=== PATIENT | female | born 1955 | race Caucasian/White ===

== ENCOUNTER 2023-03-29 05:34 | Outpatient (CLI) | payer MEDICARE ==
[~2023-03-29] VITALS: Ht 162.6 cm; Wt 71.3 kg
[2023-03-29] MEDS ORDERED: CHOL50005 PO (13:45)
[2023-03-29] MEDS ORDERED: GLUC1CAP37 PO (13:45)
[2023-03-29] MEDS ORDERED: TUME1CAP PO (13:45)
[2023-03-29] MEDS ORDERED: FLUT1DIS26 IH (13:45)
[2023-03-29] MEDS ORDERED: MULT-1210 PO (13:45)
[2023-03-29] MEDS ORDERED: FLUT15.845 NS (13:45)
[2023-03-29] MEDS ORDERED: ROSU10TA28 PO (13:45)
[2023-03-29] MEDS ORDERED: UBID100C44 PO (13:45)
[2023-03-29] MEDS ORDERED: ZOLP5TAB7 PO (13:45)
[2023-03-29] MEDS ORDERED: RT-ALBUINH INH (13:45)
[2023-03-29] MEDS ORDERED: MELO7.5T46 PO (13:45)
[2023-03-29] MEDS ORDERED: PROP1DRO7 OP (13:45)
[2023-03-29] MEDS ORDERED: [UNRECOGNIZED DRUG - CODE] TP (13:45)
[2023-03-29] MEDS ORDERED: IBUP-2473 PO (13:45)
[2023-03-29] MEDS ORDERED: VIT1CAPS44 PO (13:45)
[2023-03-29] MEDS ORDERED: CALC-308 PO (13:45)
[2023-03-29] MEDS ORDERED: ESCI-2 PO (13:45)
[2023-03-29] MEDS ORDERED: NAPH15DR6 OP (13:45)
== END 2023-03-29 14:31 | disposition home or self-care (01) ==
LOC: PREOP 05:34
PROVIDERS: ATTEND Obstetrics & Gynecology
DX: Z01.818 Encounter for other preprocedural examination (principal)

== ENCOUNTER 2023-04-05 06:17 | Day surgery (SDC) | payer MEDICARE ==
[~2023-04-05] VITALS: Ht 162 cm; Wt 71.3 kg
[2023-04-05] VITALS (12 sets, daily range): BP systolic 121–167; BP diastolic 64–95
[~2023-04-05 06:17] MED LIST: CALC-308 PO; CHOL50005 PO; ESCI-2 PO; FLUT15.845 NS; FLUT1DIS26 IH; GLUC1CAP37 PO; IBUP-2473 PO; MELO7.5T46 PO; MULT-1210 PO; NAPH15DR6 OP; PROP1DRO7 OP; ROSU10TA28 PO; RT-ALBUINH INH; TUME1CAP PO; UBID100C44 PO; VIT1CAPS44 PO; ZOLP5TAB7 PO; [UNRECOGNIZED DRUG - CODE] TP
[2023-04-05] MEDS ORDERED: metroNIDAZOLE 500MG/100ML IVPB 100 ML IV ONE (06:30)
[2023-04-05] MEDS ORDERED: ceFAZolin INJECTION 2,000 MG in NS (IVPB) 50 ML 50 ML IV ONE (06:30)
[2023-04-05] MEDS ORDERED: ESTROGENS, Conjugated VAGINAL CREAM 30 GM ONE (07:00)
[2023-04-05] MEDS ORDERED: BUPIVACAINE 0.25% 30 ML VIAL ONE (07:01)
[2023-04-05] MEDS ORDERED: NS (IVPB) 100 ML 100 ML ONE (07:02)
[2023-04-05] MEDS: LACTATED RINGERS 1,000 ML 1,000 ML IV PRN ×2 (07:04→07:30)
[2023-04-05] MEDS ORDERED: ONDANSETRON INJECTION 4 MG/2 ML (SDV) ONE (07:06)
[2023-04-05] MEDS ORDERED: dexAMETHasone INJ 10 MG/ML 1 ML VIAL ONE (07:06)
[2023-04-05] MEDS ORDERED: fentaNYL INJECTION 100 MCG/2 ML VIAL ONE (07:06)
[2023-04-05] MEDS ORDERED: LIDOCAINE PF 2% 5 ML VIAL ONE (07:06)
[2023-04-05] MEDS ORDERED: ROCURONIUM 50 MG/5 ML VIAL IV ONE (07:06)
[2023-04-05] MEDS ORDERED: MIDAZOLAM INJ 2 MG/2 ML VIAL ONE (07:06)
[2023-04-05] MEDS ORDERED: SEVOFLURANE (ULTANE) 15 ML INHAL SOLN ONE ×3 (07:06→08:54)
[2023-04-05] MEDS ORDERED: proPOfol INJECTION 200 MG/20 ML VIAL IV ONE (07:06)
--- NOTE | 2023-04-05 07:22 | Progress Note-Pre Operative ---
Pre-Operative Progress Note Date of Available H&P: Apr 05, 2023 Date H&P Reviewed: Apr 05, 2023 Time H&P Reviewed: 07:05 History & Physical: H&P Reviewed, Patient Examed, No changes noted Pre-Operative Diagnosis: POP, Cystocele, Rectocele SHANTANU IBARRA DO Apr 05, 2023 07:22
--- NOTE | 2023-04-05 07:25 | Discharge Inst-Women's Service ---
Discharge Inst-Women's Serv Depart Medication/Instructions New, Converted or Re-Newed RX: Transmitted to Pharmacy Problems Reviewed?: Yes Consults/Follow Up Additional Follow Up: Yes Orders/Referrals Dr. Lau/Laury in 7-10 days and in 8 weeks Activity Activity: Activity as Tolerated Driving Instructions: No Driving for 1 Week NO SMOKING: NO SMOKING Nothing Inside Vagina: No Douching, No [place], No Tampons Diet Discharge Diet: No Restrictions Symptoms to Report to : Bleeding Excessive, Pain Increased, Fever Over 101 Degrees F, Vaginal Bleeding Increase, Questions/Concerns For Any Problems or Questions: Contact Your Physician Skin/Wound Care Infection Signs and Symptoms: Increased Redness, Foul Odor of Wound, Increased Drainage, Skin Itchy or Has a Rash, Increased Swelling, Temperature Above 101 F Operative Area Clean and Dry: Keep Incision Clean/Dry Stitches/Terrance/Dermabond: Dermabond, Care of Stitches Bathing Instructions: SHANTANU Koch DO Apr 05, 2023 07:25
[2023-04-05] MEDS ORDERED: SIME80TA16 PO (07:26)
[2023-04-05] MEDS ORDERED: DOCU100C37 PO (07:26)
[2023-04-05] MEDS ORDERED: HYDR-34 PO (07:26)
[2023-04-05] MEDS ORDERED: IBUP-844 PO (07:26)
[2023-04-05] MEDS ORDERED: ZOLPIDEM 5 MG (AMBIEN) TAB PO PRN (07:30)
[2023-04-05] MEDS ORDERED: HYDROcodone/ACETAMINOPHEN 7.5 MG/325 MG TABLET PO PRN (07:30)
[2023-04-05] MEDS ORDERED: ANTACID SUSPENSION 30 ML UDC PO PRN (07:30)
[2023-04-05] MEDS ORDERED: BENZOCAINE LOZENGES 1 EACH MM PRN (07:30)
[2023-04-05] MEDS ORDERED: KETOROLAC INJ 30 MG/ML VIAL IVP PRN (07:30)
[2023-04-05] MEDS ORDERED: DOCUSATE SODIUM 100 MG CAPSULE PO PRN (07:30)
[2023-04-05] MEDS ORDERED: IBUPROFEN 600 MG TABLET PO PRN (07:30)
[2023-04-05] MEDS ORDERED: ONDANSETRON INJECTION 4 MG/2 ML (SDV) IV PRN (07:30)
[2023-04-05] MEDS ORDERED: SIMETHICONE 80 MG CHEWABLE TABLET PO PRN (07:30)
[2023-04-05] MEDS ORDERED: BUPIVACAINE 0.25% 30 ML VIAL INJ ONE (07:52)
[2023-04-05] MEDS ORDERED: ESTROGENS, Conjugated VAGINAL CREAM 30 GM PV ONE (07:54)
[2023-04-05] MEDS ORDERED: NS 100 ML (IVPB) BAG IR ONE (07:55)
[2023-04-05] MEDS ORDERED: VASOPRESSIN INJECTION 20 UNIT/ML VIAL IJ ONE (07:55)
[2023-04-05] MEDS ORDERED: HYDROmorphone INJECTION 2 MG/ML VIAL ONE (07:56)
[2023-04-05] MEDS ORDERED: GLYCOPYRROLATE INJ 0.2 MG/ML 2 ML VIAL ONE (08:51)
[2023-04-05] MEDS ORDERED: NEOSTIGMINE 1 MG/1ML 10 ML VIAL ONE (08:51)
--- NOTE | 2023-04-05 09:16 | Anesthesia-General Post-Op ---
General Patient Condition Mental Status/LOC: Same as Preop Cardiovascular: Satisfactory Nausea/Vomiting: Absent Respiratory: Satisfactory Pain: Controlled Complications: Absent Post Op Complications Complications None Follow Up Care/Instructions Patient Instructions None needed. Anesthesia/Patient Condition Patient Condition Patient is doing well, no complaints, stable vital signs, no apparent adverse anesthesia problems. No complications reported per nursing. MAYRA JAIMES CRNA Apr 05, 2023 09:16
[2023-04-05] MEDS ORDERED: fentaNYL INJECTION 100 MCG/2 ML VIAL IVP ONE (09:30)
[2023-04-05] MEDS ORDERED: ONDANSETRON INJECTION 4 MG/2 ML (SDV) IVP PRN (09:30)
[2023-04-05] MEDS: LACTATED RINGERS 1,000 ML 1,000 ML IV SCH ×2 (10:48→18:35)
--- NOTE | 2023-04-05 16:06 | OPERATIVE REPORT ---
DATE OF SERVICE: 04/05/2023 PREOPERATIVE DIAGNOSES:. 1. A 67-year-old female with pelvic organ prolapse. 2. Grade 3 cystocele. 3. Grade 2 rectocele. POSTOPERATIVE DIAGNOSES: 1. A 67-year-old female with pelvic organ prolapse. 2. Grade 3 cystocele. 3. Grade 2 rectocele. PROCEDURE: Robotic-assisted total laparoscopic hysterectomy with bilateral salpingo-oophorectomy, anterior and posterior colporrhaphy. SURGEON: Wili Ibarra DO GRINDER SET UP OPERATOR EXTERNAL: Laury Dewey DNP, was necessary for manipulation and retraction throughout the procedure. ANESTHESIA: General endotracheal. ESTIMATED BLOOD LOSS: 50 mL. URINE OUTPUT: 350 mL clear at the end of the procedure. FLUIDS: 2000 mL lactated Ringer's solution. FINDINGS: Distended cervix to the vaginal introitus with Valsalva, grade 3 cystocele with grade 2 rectocele. Grossly normal appearing uterus, bilateral fallopian tubes and ovaries. SPECIMEN SENT: Uterus, bilateral fallopian tubes and ovaries. INDICATIONS FOR PROCEDURE: This is a 67-year-old female patient who had sought care in my office for concerns of ongoing issues with urinary retention and having to reduce her bladder in order to void. On examination by my nurse practitioner, Laury Dewey, she was noted to have significant amount of pelvic organ prolapse. We discussed in detail proceeding with pessary placement; however, the patient due to her medical health, wished to proceed with an operative procedure at this point. She did not wish to have the pessary placed due to sexual activity. Risks of the procedure were discussed with the patient in detail including risk of bleeding, infection, damage to surrounding structures including but not limited to bowel, bladder, ureter, kidneys, possible need for operation, postoperative complications that may occur, recovery timeframe, risk from anesthesia and even . After everything was discussed with the patient in detail, she was agreeable to proceed. Consent was obtained. The patient was taken to the operating room. OPERATIVE REPORT IN DETAIL: Once in the operating room, anesthesia was administered and found to be adequate. She was placed in dorsal lithotomy position, prepped and draped in normal sterile fashion. A timeout was performed. A Bates catheter was placed using sterile technique. A weighted speculum was inserted into the patient's vagina. Right angle retractor was used to visualize cervix. An 0 Vicryl suture was then placed in the anterior lip of the cervix. The Vicryl was used as my retraction point. I then gently sound the uterine cavity, depth was found to be 6 cm. I selected a 6 cm HITESH uterine manipulator tip and 2.5 cm colpotomy ring. The manipulator tip was advanced into the uterus and balloon was deployed and the colpotomy ring was advanced around the vaginal fornix. I then performed a change of gloves, turned my attention to the abdomen where subcostally at the midclavicular line, I introduced the Veress needle through the skin. Intraperitoneal placement was confirmed using saline drop test. An opening pressure of 5 mmHg was noted. I proceeded with CO2 insufflation to maximum pressure of 15 mmHg, at which point I made an 8-mm infraumbilical trocar with a knife and directed blunt laparoscopic da Niko camera trocar through the incision until intraperitoneal placement was confirmed using the da Niko laparoscope. There was no evidence of damage from entry site. A brief scan of the upper abdominal anatomy appears to be grossly normal. There is no evidence of damage from the Veress entry site and the Veress was removed at that point. I then had the patient placed in steep Trendelenburg, where I am able to visualize all my pelvic anatomy as defined in my findings above. I then placed 2 lateral trocars, these were both 8 mm trocars, approximately 8 cm lateral to my infraumbilical trocar. Once both these trocars were in place, under direct visualization of laparoscope, I bring in the da Niko robot and docked it in the appropriate fashion. The SynchroSeal device was placed in the left hand and monopolar benny placed in the right hand. I then took my place at the da Niko operative console where I performed the following dissection bilaterally. Starting at the infundibulopelvic ligament, I sealed and transected using the SynchroSeal device. I then sealed and transected the round ligament using SynchroSeal device. This allowed me to grasp the entire broad ligament, which I sealed and transected using a SynchroSeal device. I do this down to the level of the lower uterine segment and during that dissection, I steered clear of the ureter, which I can see running down the posterior lateral peritoneal wall. Once again I took the lower uterine segment. I the anterior and posterior leaflets of the broad ligament. Anterior lip was taken down to the anterior vaginal fornix. The posterior leaflet was taken down to the posterior vaginal fornix. This allowed me to skeletonize the uterine vessels laterally, which I sealed and transected using SynchroSeal device. I then created a colpotomy at 12 o'clock position using monopolar benny and taken circumferentially around the vaginal fornix, amputating the cervix away from the vagina. The entire specimen was then removed through the vagina. I then closed the vaginal cuff using 2-0 V-Loc in a running fashion, after which there was active bleeding noted from any of my dissection planes. I then undocked the da Niko robot and proceeded with remainder of the case laparoscopically. I copiously irrigated the pelvis using normal saline. Once again, there was no active bleeding noted from any of the dissection planes. I placed Surgiflo hemostatic agent over all my planes of dissection. I had the patient taken out of steep Trendelenburg, while I removed the lateral trocars under direct visualization of the laparoscope. The infraumbilical trocars left in place to release the remainder of insufflation and to introduce 10 mL of 0.25% Marcaine in the peritoneal cavity for postoperative pain management. I then removed this trocar as well. The skin was reapproximated using 4-0 Monocryl interrupted subcuticular stitches. Dermabond was applied to the incisions and Band-Aids were placed over the incisions as well. I then took my attention back to the vagina where the cystocele is addressed. I infiltrated the submucosa of the cystocele margins using vasopressin, concentration of 20 units in 100 mL of normal saline. Once these margins were infiltrated and had been noted to be blanching, I then made a midline incision down the cystocele and undermined the mucosa down the midline using Metzenbaum scissors. This incision was then completed using Metzenbaum scissors and then dissected the underlying vesicovaginal fascia off of the overlying mucosa. This is done laterally to the margins of the cystocele. I then trimmed the excess mucosa and then reapproximated the mucosa and the vesicovaginal fascia in one running layer using 3-0 Vicryl suture in a running locked fashion. After which, there was good reduction of the cystocele appreciated. On the posterior aspect in the similar fashion, I infiltrated the margins of the rectocele using the same concentration of vasopressin. I made an upside down triangle incision down the peritoneum, taking off the cutaneous tissue and then take this dissection down the midline using Metzenbaum scissors down the submucosa to the rectovaginal fascia. The incision was in the midline using the Metzenbaum scissors. I then dissected off the overlying mucosa from the underlying rectovaginal fascia. The excess mucosa was trimmed and the fascia and mucosa are then reapproximated, plicating and reducing the rectocele as I go down the midline using 3-0 Vicryl suture in a running locked fashion. I then reapproximated the perineal body in similar fashion by running this subcutaneously, followed by subcuticularly back up to the vaginal introitus. I then packed the vagina using Premarin-soaked vaginal packing, after which there was no active bleeding noted from any of the dissection planes. The Bates catheter was left in place. The patient tolerated the procedure well and was taken to recovery area in stable condition. Lap and sponge counts were correct at the end of the procedure. Instrument counts were correct as well. Two grams of Ancef and 500 mg of Flagyl were given preoperatively for infection prophylaxis. Job ID: [id number] DocumentID: [id number] Dictated Date: 04/05/2023 09:08:07 Doll Maker Date: 04/05/2023 16:04:00 Dictated By: WILI IBARRA DO
[2023-04-05 17:30] LABS: BASOPHILS % (AUTO) 1 % (0-10); EOSINOPHILS # (AUTO) 0.1 10^3/uL (0.0-0.3); EOSINOPHILS % (AUTO) 1 % (0-10); HEMATOCRIT 43 % (35-52); HEMOGLOBIN 13.8 g/dL (11.5-16.0); LYMPHOCYTES # (AUTO) 1.1 10^3/uL (1.0-4.0); LYMPHOCYTES % (AUTO) 18 % (12-44); MEAN CORPUSCULAR HEMOGLOBIN 30 pg (25-34); MEAN CORPUSCULAR HGB CONC 32 g/dL (32-36); MEAN CORPUSCULAR VOLUME 93 fL (80-99); MEAN PLATELET VOLUME 10.5 fL (9.0-12.2); MONOCYTES # (AUTO) 0.5 10^3/uL (0.0-1.0); MONOCYTES % (AUTO) 8 % (0-12); NEUTROPHILS # (AUTO) 4.5 10^3/uL (1.8-7.8); NEUTROPHILS % (AUTO) 73 % (42-75); PLATELET COUNT 246 10^3/uL (130-400); WHITE BLOOD COUNT 6.2 10^3/uL (4.3-11.0)
[2023-04-06 01:00] VITALS: BP 108/61
[2023-04-06] MEDS: LACTATED RINGERS 1,000 ML 1,000 ML IV SCH (01:23)
[2023-04-06 09:14] VITALS: BP 127/62
== END 2023-04-06 11:35 ==
LOC: SDC 06:17 → WS 10:10 → SDC 04-06 11:35
PROVIDERS: ATTEND Obstetrics & Gynecology
DX: N84.0 Polyp of corpus uteri (principal); N81.89 Other female genital prolapse; N81.10 Cystocele, unspecified; N81.6 Rectocele; N88.8 Other specified noninflammatory disorders of cervix uteri; N86 Erosion and ectropion of cervix uteri; N83.291 Other ovarian cyst, right side; N39.46 Mixed incontinence; J45.909 Unspecified asthma, uncomplicated; Z91.199 Patient's noncompliance with other medical treatment and regimen due to unspecified reason
CPT/HCPCS: 36415; 85025; 86850; 86900; 86901; 87081; 88307; 94664